=== PATIENT | male | born 1980 | race Caucasian/White ===

== ENCOUNTER 2022-07-15 11:18 | Outpatient (CLI) | payer OTHER, SELFPAY ==
[2022-07-15 12:58] LABS: Chloride* 105 mmol/L (96-114); Potassium* 4.6 mmol/L (3.6-5.1); Sodium* 141 mmol/L (135-149)
[2022-07-15 13:01] LABS: Blood Urea Nitrogen* 15 mg/dL (5-24); Carbon Dioxide* 29 mmol/L (20-32); Cholesterol* 187 mg/dL (90-199); Creatinine* 0.9 mg/dL (0.5-1.5); Estimated Glomerular Filt Rate 111 ml/min; Glucose* 92 mg/dL (60-115)
[2022-07-15 13:02] LABS: Calcium* 9.2 mg/dL (8.4-10.6); HDL Cholesterol* 45 mg/dL (>=40); LDL Cholesterol Calculated 113 mg/dL (<100); Triglycerides* 144 mg/dL (40-149)
== END 2022-07-15 11:19 | disposition home or self-care (01) ==
LOC: NFLDREF 11:19
PROVIDERS: PCP Family Medicine; Visit Provider Family Medicine
DX: E11.9 Type 2 diabetes mellitus without complications (principal); E66.9 Obesity, unspecified; Z13.6 Encounter for screening for cardiovascular disorders
CPT/HCPCS: 80048; 80061

== ENCOUNTER 2024-10-29 12:52 | Outpatient (CLI) | payer OTHER, SELFPAY | END 2024-10-29 12:53 | disposition home or self-care (01) | PROVIDERS: PCP Family Medicine; Visit Provider Family Medicine | DX: E11.65 Type 2 diabetes mellitus with hyperglycemia (principal); Z79.84 Long term (current) use of oral hypoglycemic drugs; Z13.220 Encounter for screening for lipoid disorders | CPT/HCPCS: 80048; 80061; 85027 ==

== ENCOUNTER 2025-01-22 10:48 | Outpatient (CLI) | payer OTHER, SELFPAY ==
[2025-01-22 14:48] LABS: Creatinine Urine 140.6 mg/dL
[2025-01-22 14:54] LABS: Microalbumin Creatinine Ratio 0 mg/g (0-30); Microalbumin Urine 1 mg/dL
[2025-01-22 15:27] LABS: Chlamydia DNA Amplified* NOT DETECTED (No Detected); GC DNA Amplified* NOT DETECTED (No Detected)
== END 2025-01-22 10:49 | disposition home or self-care (01) ==
PROVIDERS: PCP Family Medicine; Visit Provider Family Medicine
DX: E11.9 Type 2 diabetes mellitus without complications (principal); Z79.84 Long term (current) use of oral hypoglycemic drugs; Z79.85 Long-term (current) use of injectable non-insulin antidiabetic drugs; Z11.3 Encounter for screening for infections with a predominantly sexual mode of transmission; Z11.4 Encounter for screening for human immunodeficiency virus [HIV]
CPT/HCPCS: 82043; 82570; 86592; 86703; 87491; 87591